=== PATIENT | female | born 2000 | race Caucasian/White ===

== ENCOUNTER 2018-10-04 06:41 | Day surgery (SDC) | payer BC, SELFPAY ==
[2018-09-28 11:16] LABS: Hematocrit 39.6 % (37-47); Hemoglobin 12.8 g/dl (12.0-15.0); Mean Corp Hgb Conc 32.3 g/gl (32-36); Mean Corpuscular Hgb 29.8 pg (27.0-32.0); Mean Corpuscular Volume 92.1 fL (81-99); Mean Platelet Vol. 12.1 fl (6.2-12.0); Platelet Count 166 K/mm3 (150-450); RBC Distribution Width CV 12.5 % (11.6-14.6); RBC Distribution Width SD 41.2 fl (35.1-43.9); White Blood Count 4.5 K/mm3 (4.4-11.0)
[2018-09-28 11:17] LABS: Scan Indicated on CBC? Y/N NO
[2018-09-28 11:43] LABS: Partial Thromboplast Time 29.2 Seconds (24.1-36.2); Prothrombin Time (Protime)PT. 13.3 SECONDS (11.7-14.9)
[2018-09-28 11:56] LABS: Pregnancy, Serum, hCG Quali. NEGATIVE Negative (0-9 Nonpreg)
[2018-10-04] VITALS (7 sets, daily range): BP systolic 79–101; BP diastolic 45–64; PULSE 68–79; RESP 14–16; TEMP 36.3–37.3; O2SAT 96–100; BMI 21.9
[2018-10-04 07:27] LABS: Internal QC Validated? YES +Cl - CLEAR BKGD; Pregnancy, Urine Negative Negative
--- NOTE | 2018-10-04 08:12 | DCINST_ITS ---
You will use the following diet at home:: No restrictions Your food should be the consistency of: Regular Discharge Activity: Return to Normal Activity, May Drive, May not drive while taking narcotic pain medications., May Shower Return to work on:: 10/09/18 May shower in (days): 0 May resume sexual activity in: 4-6 weeks Call your doctor if your incision/area has: Sudden Increased Bleeding, Foul Smelling Discharge Call your doctor if you observe: Fever of 101 or Higher, Inability to urinate, Inability to have a bowel movement, Using more than one pad per hour, Shortness of breath, Chest pain, Calf discomfort, Uncontrolled pain Cleanse incision/area with: Soap & Water Allergies/Adverse Reactions: Allergies gluten Allergy (Verified 10/04/18 07:26) Food Allergy meloxicam Allergy (Verified 10/04/18 07:26) Rash Penicillins [PCN] Allergy (Verified 10/04/18 07:26) Rash DAIRY PRODUCTS Allergy (Uncoded 10/04/18 07:26) Food Allergy Medications to take at Discharge Ferrous Sulfate, Dried [Iron] 160 mg PO DAILY 09/27/18 Progesterone, Micronized [Progesterone] 100 mg PO DAILY 09/27/18 Cholecalciferol (VIT D3) [Vitamin D3] 1,000 unit PO DAILY 10/04/18 Dha Algal-900 1 tab PO DAILY 10/04/18 Digestive 8/L.acidoph/Pectin [Digestive Enzymes Tablet] 1 each PO DAILY 10/04/18 Ibuprofen 600 mg PO 4X/DAY #20 tab 10/04/18 Oxycodone [Oxyir] 5 mg PO Q4H PRN PRN 7 Days #10 tab 10/04/18 The following prescriptions were given: Oxycodone [Oxyir] 5 mg PO Q4H PRN PRN 7 Days #10 tab PRN Reason: Severe Pain (6-10/10) Ibuprofen 600 mg PO 4X/DAY #20 tab Orders to be completed after discharge: ,Urine Time Frame: 10/04/18, Location: Laboratory Primary Care Physician: Care Physician,No Primary [Primary Care Provider] - Test Results: Test results from this visit will be discussed in further detail at your follow- up appointment, if applicable. Please Follow Up With: Juan Mooney MD When: one to two weeks Proposed Discharge Date: 10/04/18
--- NOTE | 2018-10-04 08:13 | PCM.OPRPT ---
Report of Operation Date of Procedure: 10/04/18 Pre-Operative Diagnosis: Restrictive hymen, requests placement of intrauterine device Post-Operative Diagnosis: Same Surgery/Procedure Performed:: Partial Hymenectomy, Placement of Kyleena IUD Description of Surgical Findings:: Right side og hymen was imperforate. Cervix and vagina normal. Uterus sounds to 8cm. 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 She was given clindamycin and gentamicin intravenously for surgical prophylaxis. MAC anesthesia was induced without complication. She was prepped and draped in the dorsal lithotomy position. A red rubber catheter was used to drain the bladder. Using a scalpel the excess hymenal tissue was removed. Cautery was used to effect excellent hemostasis. A speculum was then placed the cervix identified and the anterior lip grasped with a single toothed tenaculum. The cervix was then dilated to 17 [place] without difficulty. A Kyleena IUD was then loaded in it's applicator and the IUD placed to the fundus of the uterus. The applicator was removed. The single toothed tenaculum was removed. Hemostasis was good. The speculum was then removed. Instrument and sponge counts were correct. She was reversed from anesthesia and taken to the recovery room in stable condition. Grafts/Implants Used: Kyleena IUD - Complications none - Admit VTE Documentation VTE Present on Admission: No VTE Mechan Device Prophylaxis: SCD's VTE Pharm Prophylaxis ordered?: No Reason prophylaxis not ordered:: Treatment Not Indicated
--- NOTE | 2018-10-04 08:16 | OP.PCM_ITS ---
Report of Operation Date of Procedure: 10/04/18 Pre-Operative Diagnosis: Restrictive hymen, requests placement of intrauterine device Post-Operative Diagnosis: Same Surgery/Procedure Performed:: Partial Hymenectomy, Placement of Kyleena IUD Description of Surgical Findings:: Right side og hymen was imperforate. Cervix and vagina normal. Uterus sounds to 8cm. 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 She was given clindamycin and gentamicin intravenously for surgical prophylaxis. MAC anesthesia was induced without complication. She was prepped and draped in the dorsal lithotomy position. A red rubber catheter was used to drain the bladder. Using a scalpel the excess hymenal tissue was removed. Cautery was used to effect excellent hemostasis. A speculum was then placed the cervix identified and the anterior lip grasped with a single toothed tenaculum. The cervix was then dilated to 17 [place] without difficulty. A Kyleena IUD was then loaded in it's applicator and the IUD placed to the fundus of the uterus. The applicator was removed. The single toothed tenaculum was removed. Hemostasis was good. The speculum was then removed. Instrument and sponge counts were correct. She was reversed from anesthesia and taken to the recovery room in stable condition. Grafts/Implants Used: Kyleena IUD - Complications none - Admit VTE Documentation VTE Present on Admission: No VTE Mechan Device Prophylaxis: SCD's VTE Pharm Prophylaxis ordered?: No Reason prophylaxis not ordered:: Treatment Not Indicated
--- NOTE | 2018-10-04 08:20 | MISC_PTH ---
PATIENT: CRISTINA ONTIVEROS LOC: [facility] [place] U#:[id number] AGE/SX: 18/F ROOM: RE10/04/[address]: Dr. 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 AM:guera 10/05/18 COMMENT There is no evidence of dysplasia. Clinical correlation is suggested. MICROSCOPIC DESCRIPTION Slides are reviewed. GROSS DESCRIPTION Received in fixative is one container labeled with the patient's name and designated hymen. The specimen consists of a piece of cummings-pink soft tissue measuring 2.5 x 0.5 x 0.5 cm. The specimen is sectioned and submitted entirely in one cassette. / SJ:guera 10/04/18 TC:5 CPT: 83765
[2018-10-04] MEDS: Ketorolac 30 MG/ML Syringe IV (09:19)
== END 2018-10-04 10:23 | disposition home or self-care (01) ==
LOC: SDC 06:41 → AC 06:42
PROVIDERS: Anesthesiology; Referring Provider Obstetrics & Gynecology; Visit Provider Obstetrics & Gynecology
PROC: (CPT 56700; principal; 2018-10-04 08:10)
DX: Q52.3 Imperforate hymen (principal); Z30.430 Encounter for insertion of intrauterine contraceptive device
CPT/HCPCS: 56700; 58300; 36415; 81025; 84703; 85027; 85610; 85730; 86850; 86900; 88305; J7120; J2405